=== PATIENT | male | born 1940 | race Asian ===

== ENCOUNTER 2021-08-31 08:32 | Day surgery (SDC) | payer MEDICARE ==
[2021-08-26 10:36] VITALS: BMI 24.4
[~2021-08-31 08:32] MED LIST: Lidocaine 1% MPF 2 ML VIAL ONE
[2021-08-31] MEDS ORDERED: PROPOFOL 20 ML ONE ×2 (09:46→09:48)
[2021-08-31] MEDS ORDERED: Lidocaine 1% PF 5 ML VIAL ONE (09:46)
== END 2021-08-31 10:56 | disposition home or self-care (01) ==
LOC: CSHSDC 08:32
PROVIDERS: ATTEND Internal Medicine Gastroenterology
PROC: 0DJD8ZZ Inspection of Lower Intestinal Tract, Via Natural or Artificial Opening Endoscopic (ICD-10-PCS; principal; 2021-08-31)
DX: K62.5 Hemorrhage of anus and rectum (principal); Z86.010 Personal history of colon polyps; K64.9 Unspecified hemorrhoids; K57.30 Diverticulosis of large intestine without perforation or abscess without bleeding; E03.9 Hypothyroidism, unspecified; E78.5 Hyperlipidemia, unspecified; E11.9 Type 2 diabetes mellitus without complications
CPT/HCPCS: J2704

== ENCOUNTER 2022-08-24 21:32 | Emergency (ER) | payer MEDICARE ==
[2022-08-24] MEDS ORDERED: Ondansetron ODT 4 MG TAB ONE (22:06)
[2022-08-24] MEDS ORDERED: Ondansetron PF 4 MG/2 ML Vial ONE ×2 (22:22→23:52)
[2022-08-24 22:59] LABS: #Basophils 0.1 10x3/uL (0.0-0.2); #Eosinphils 0.2 10x3/uL (0.0-0.5); #Monocytes 1.3 10x3/uL (0.0-1.1); #Neutrophils 7.6 10x3/uL (1.5-8.4); %Basophils 0.5 % (0.0-2.0); %Eosinophils 1.8 % (0.0-6.0); %Lymphocytes 12.1 % (18.0-47.0); %Monocytes 12.7 % (0.0-10.0); %Neutrophils 72.4 % (40.0-75.0); Hemoglobin 14.3 g/dL (13.5-17.5); Mean Corpuscular HGB CONC 34.7 g/dL (32.0-36.0); Mean Corpuscular Hemoglobin 29.8 pg (27.0-33.0); Mean Corpuscular Volume 85.8 fl (81.2-95.1); Mean Platelet Volume 11.5 fl (7.4-10.4); Platelet Count 128 10x3/uL (150-450); RBC Distribution Width 13.2 % (11.5-14.5); White Blood Cell (WBC) Count 10.6 10x3/uL (3.5-10.5)
[2022-08-24 23:03] LABS: ALT (SGPT) 49 U/L (8-55); AST (SGOT) 37 U/L (5-34); Alkaline Phosphatase 53 U/L (40-110); Anion Gap 14 mmol/L (10-20); BUN (Urea Nitrogen) 26 mg/dL (8.4-25.7); Bilirubin, Total 0.8 mg/dL (0.2-1.2); Calc. Creatinine Clearance 0 mL/min (70-130); Calcium 9.3 mg/dL (7.8-10.44); Carbon Dioxide 26 mmol/L (23-31); Chloride 100 mmol/L (98-107); Estimated GFR 61; Globulin 3.5 g/dL (2.4-3.5); Glucose 188 mg/dL (83-110); Lipase 81 U/L (8-78); Potassium 4.6 mmol/L (3.5-5.1); Protein, Total 7.5 g/dL (5.8-8.1); Sodium 135 mmol/L (136-145)
[2022-08-24 23:13] LABS: SARS-CoV-2 NAA Rapid Test Not Detected (NotDetected)
[2022-08-24] MEDS ORDERED: Pantoprazole 40 MG VIAL ONE (23:52)
== END 2022-08-25 01:43 | disposition home or self-care (01) ==
LOC: CSHERS 21:32
DX: R07.89 Other chest pain (principal); B34.9 Viral infection, unspecified; R11.0 Nausea; Z20.822 Contact with and (suspected) exposure to COVID-19; E03.9 Hypothyroidism, unspecified
CPT/HCPCS: 0240U; 71045; 80053; 83690; 83880; 84484; 85025; 93005; 96361; 96374; 96375; 96376; 99285; 36415; C9113; J2405; Q0162

== ENCOUNTER 2025-04-23 14:15 | Outpatient (CLI) | payer OTHER | END 2025-04-23 14:16 | disposition home or self-care (01) | LOC: CSHCT 14:15 | PROVIDERS: ATTEND Family Medicine | DX: Z13.6 Encounter for screening for cardiovascular disorders (principal); I25.10 Atherosclerotic heart disease of native coronary artery without angina pectoris; I25.84 Coronary atherosclerosis due to calcified coronary lesion | CPT/HCPCS: 75571 ==